=== PATIENT | female | born 1985 | race Hispanic/Latino ===

== ENCOUNTER → 2024-12-24 10:05 | Outpatient (REF) | payer OTHER, SELFPAY | LOC: HWRAD 10:05 | PROVIDERS: ATTENDING PHYSICIAN Physician Assistant Medical | DX: R10.31 Right lower quadrant pain (principal) | CPT/HCPCS: 76830; 76856 ==

== ENCOUNTER → 2025-08-05 12:37 | Outpatient (REF) | payer OTHER, SELFPAY | LOC: RAD 12:37 | PROVIDERS: ATTENDING PHYSICIAN Obstetrics & Gynecology; FAMILY PHYSICIAN Physician Assistant Medical | DX: O36.80X0 Pregnancy with inconclusive fetal viability, not applicable or unspecified (principal) | CPT/HCPCS: 76801 ==